=== PATIENT | female | born 2000 | race Caucasian/White ===

== ENCOUNTER 2023-01-16 08:31 | Emergency (ER) | payer OTHER ==
[~2023-01-16] VITALS: Ht 177 cm; Wt 63.0 kg
[2023-01-16 09:26] LABS: ALBUMIN 4.6 GM/DL (3.2-4.5); BASOPHILS % (AUTO) 0 % (0-10); EOSINOPHILS # (AUTO) 0.1 10^3/uL (0.0-0.3); EOSINOPHILS % (AUTO) 0 % (0-10); HEMATOCRIT 47 % (35-52); HEMOGLOBIN 15.5 g/dL (11.5-16.0); LYMPHOCYTES # (AUTO) 0.5 10^3/uL (1.0-4.0); LYMPHOCYTES % (AUTO) 4 % (12-44); MEAN CORPUSCULAR HEMOGLOBIN 30 pg (25-34); MEAN CORPUSCULAR HGB CONC 33 g/dL (32-36); MEAN CORPUSCULAR VOLUME 90 fL (80-99); MEAN PLATELET VOLUME 10.3 fL (9.0-12.2); MONOCYTES # (AUTO) 0.5 10^3/uL (0.0-1.0); MONOCYTES % (AUTO) 4 % (0-12); NEUTROPHILS # (AUTO) 11.4 10^3/uL (1.8-7.8); NEUTROPHILS % (AUTO) 91 % (42-75); PLATELET COUNT 186 10^3/uL (130-400); WHITE BLOOD COUNT 12.5 10^3/uL (4.3-11.0)
[2023-01-16 09:27] LABS: CHLORIDE 110 MMOL/L (98-107); POTASSIUM 4.2 MMOL/L (3.6-5.0); SODIUM 137 MMOL/L (135-145)
--- NOTE | 2023-01-16 09:27 | ED GI ---
General Chief Complaint: Abdominal/GI Problems Stated Complaint: VOMITING | DIARRHEA | NAUSEA Nursing Triage Note: PT AMB TO RM 10 STATES HAS HAD N/V/D SINCE APPROX 0200 THIS AM. 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 Hematochezia states she does have history of celiac disease denies any significant triggers she creates her own foods and takes them to work with her. At work last night she began having nausea and then proceeded to vomiting and diarrhea by 5 AM. No fever no significant distress she is feeling otherwise worn down from protracted volume loss. She states she felt like this a couple of years ago did not seek medical attention but at that time did not have diarrhea. She states she would not of come in however she is just feeling rundown and continues to have some nausea. Timing/Duration: 4-6 Hours Severity/Quality: Moderate Associated Symptoms: Nausea/Vomiting Allergies and Home Medications Allergies Coded Allergies: gluten (Verified Allergy, Unknown, 01/16/23) Patient Home Medication List Home Medication List Reviewed: Yes Ondansetron (Ondansetron Odt) 4 Mg Tab.rapdis, 4 MG SL Q6H PRN for NAUSEA/VOMITING Prescribed by: Summer Fields on 01/16/23 1003 Review of Systems Review of Systems Constitutional: no symptoms reported EENTM: No Symptoms Reported Respiratory: No Symptoms Reported Cardiovascular: No Symptoms Reported Gastrointestinal: See HPI, Abdominal Pain, Diarrhea, Nausea, Vomiting Genitourinary: No Symptoms Reported Musculoskeletal: no symptoms reported Skin: no symptoms reported Psychiatric/Neurological: No Symptoms Reported Endocrine: No Symptoms Reported Hematologic/Lymphatic: No Symptoms Reported All Other Systems Reviewed Negative Unless Noted: Yes Past [id number]-[id number]-Hbeetg Hx Patient Social History Tobacco Use?: No Substance use?: No Alcohol Use?: No Immunizations Up To Date Influenza Vaccine Up-to-Date: Yes; Up-to-Date Past Medical History Surgery/Hospitalization HX: CILIAC DISEASE. EAR SURG X 2 Last Menstrual Period: Jan 16, 2023 Physical Exam Vital Signs Vital Signs - First Documented 01/16/23 08:55 Temp 36.8 Pulse 96 Resp 18 B/P (MAP) 106/64 (78) Pulse Ox 100 Capillary Refill : Less Than 3 Seconds Height/Weight/BMI Height: '" Weight: lbs. oz. kg; 20.00 BMI Method: General Appearance: WD/WN, no apparent distress HEENT: PERRL/EOMI, normal ENT inspection Neck: non-tender, full range of motion Respiratory: chest non-tender, lungs clear, normal breath sounds, no respiratory distress, no accessory muscle use Cardiovascular: regular rate, rhythm, no murmur Gastrointestinal: non tender, soft Extremities: normal range of motion, non-tender Back: no CVA tenderness Neurologic/Psychiatric: pulley man II-XII nml as tested, no motor/sensory deficits, alert, normal mood/affect, oriented x 3 Skin: normal color, warm/dry Progress/Results/Core Measures Results/Orders Lab Results Laboratory Tests Test 01/16/23 09:10 Range/Units White Blood Count 12.5 H 4.3-11.0 10^3/uL Red Blood Count 5.18 H 3.80-5.11 10^6/uL Hemoglobin 15.5 11.5-16.0 g/dL Hematocrit 47 35-52 % Mean Corpuscular Volume 90 80-99 fL Mean Corpuscular Hemoglobin 30 25-34 pg Mean Corpuscular Hemoglobin Concent 33 32-36 g/dL Red Cell Distribution Width 12.5 10.0-14.5 % Platelet Count 186 130-400 10^3/uL Mean Platelet Volume 10.3 9.0-12.2 fL Immature Granulocyte % (Auto) 0 % Neutrophils (%) (Auto) 91 H 42-75 % Lymphocytes (%) (Auto) 4 L 12-44 % Monocytes (%) (Auto) 4 0-12 % Eosinophils (%) (Auto) 0 0-10 % Basophils (%) (Auto) 0 0-10 % Neutrophils # (Auto) 11.4 H 1.8-7.8 10^3/uL Lymphocytes # (Auto) 0.5 L 1.0-4.0 10^3/uL Monocytes # (Auto) 0.5 0.0-1.0 10^3/uL Eosinophils # (Auto) 0.1 0.0-0.3 10^3/uL Basophils # (Auto) 0.0 0.0-0.1 10^3/uL Immature Granulocyte # (Auto) 0.0 0.0-0.1 10^3/uL Neutrophils % (Manual) 89 % Lymphocytes % (Manual) 4 % Monocytes % (Manual) 2 % Eosinophils % (Manual) 1 % Basophils % (Manual) 0 % Band Neutrophils 0 % Reactive Lymphocytes 4 % Blood Morphology Comment NORMAL Sodium Level 137 135-145 MMOL/L Potassium Level 4.2 3.6-5.0 MMOL/L Chloride Level 110 H 98-107 MMOL/L Carbon Dioxide Level 18 L 21-32 MMOL/L Anion Gap 9 5-14 MMOL/L Blood Urea Nitrogen 16 7-18 MG/DL Creatinine 0.79 0.60-1.30 MG/DL Estimat Glomerular Filtration Rate 108 BUN/Creatinine Ratio 20 Glucose Level 98 70-105 MG/DL Calcium Level 8.8 8.5-10.1 MG/DL Corrected Calcium 8.5-10.1 MG/DL Magnesium Level 2.0 1.6-2.4 MG/DL Total Bilirubin 0.4 0.1-1.0 MG/DL Aspartate Amino Transf (AST/SGOT) 22 5-34 U/L Alanine Aminotransferase (ALT/SGPT) 27 0-55 U/L Alkaline Phosphatase 68 40-136 U/L Total Protein 7.6 6.4-8.2 GM/DL Albumin 4.6 H 3.2-4.5 GM/DL Lipase 24 8-78 U/L My Orders Orders - SUMMER FIELDS DO Cbc And Automated Diff (01/16/23 08:52) Comprehensive Metabolic Panel (01/16/23 08:52) Hcg,Qualitative Urine (01/16/23 08:52) Lipase (01/16/23 08:52) Magnesium (01/16/23 08:52) Ua Culture If Indicated (01/16/23 08:52) Ed Iv/Invasive Line Start (01/16/23 08:52) Manual Differential (01/16/23 09:10) Ondansetron Injection (Ondansetron Inj (01/16/23 09:35) Ns Iv 1000 Ml (Ns Iv 1000 Ml) (01/16/23 09:35) Medications Given in ED Current Medications Medications Dose Ordered Sig/Glenny Route Start Time Stop Time Status Last Admin Dose Admin Ondansetron HCl 4 mg STK-MED ONCE .ROUTE 01/16/23 09:35 01/16/23 09:37 DC 01/16/23 09:39 4 MG Sodium Chloride 1,000 ml @ ud STK-MED ONCE .ROUTE 01/16/23 09:35 01/16/23 09:37 DC 01/16/23 09:40 1,000 MLS/HR Vital Signs/I&O 01/16/23 01/16/23 08:55 10:41 Temp 36.8 Pulse 96 84 Resp 18 18 B/P (MAP) 106/64 (78) 110/64 Pulse Ox 100 100 Blood Pressure Mean: 78 Progress Progress Note : Progress Note 22-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 States this started at 2 AM where she did not feel well when they were woken up to go to call she states she felt nauseated with abdominal cramping. She states he got another call at 5 AM and at that point she did begin vomiting when he got to the station she could not leave the toilet secondary to nausea vomiting and diarrhea. Denies melena hematochezia or hematemesis no fever states she cooks her own food as she does have celiac disease and asthma and does not think that she had any bad food. No fever no abdominal pain other than intermittent cramping denies chance of no abdominal bloating. Will provide 1 L of normal saline as well as Zofran and obtain basic labs to ensure no significant dehydration etc. Patient is in no significant distress she is concern for dehydration however. Exam does not reveal a surgical abdomen 1001 patient feeling better no episodes of diarrhea or vomiting while in the emergency department. Will provide Zofran advised [id number] Imodium if needed for significant diarrhea, she is gluten intolerant and therefore understands the importance of appropriate diet. Return as needed otherwise follow-up with primary care. Departure Impression Primary Impression: Gastroenteritis Disposition: HOME, SELF-CARE Condition: Improved Departure-Patient Inst. Referrals: ZAFAR FUNG MD (PCP/Family) Primary Care Physician Patient Instructions: Viral Gastroenteritis, Adult (DC) Add. Discharge Instructions: Take medications as directed. [id number] Imodium as needed for significant diarrhea, soft bland diet as you recover from this episode of gastroenteritis. Follow-up with primary care, if symptoms worsen or are persistent, return as needed for problems. Try to maintain adequate hydration. All discharge instructions reviewed with patient and/or family. Voiced understanding. Scripts Ondansetron (Ondansetron Odt) 4 Mg Tab.rapdis 4 MG SL Q6H PRN for NAUSEA/VOMITING for 7 Days, #28 TAB Prov: SUMMER FIELDS DO 01/16/23 SUMMER FIELDS DO Jan 16, 2023 09:27
[2023-01-16 09:28] LABS: CALCIUM 8.8 MG/DL (8.5-10.1)
[2023-01-16 09:29] LABS: GLUCOSE 98 MG/DL (70-105); TOTAL PROTEIN 7.6 GM/DL (6.4-8.2)
[2023-01-16 09:30] LABS: CARBON DIOXIDE 18 MMOL/L (21-32)
[2023-01-16 09:31] LABS: BILIRUBIN,TOTAL 0.4 MG/DL (0.1-1.0)
[2023-01-16 09:32] LABS: ALKALINE PHOSPHATASE 68 U/L (40-136)
[2023-01-16 09:33] LABS: CREATININE SERUM 0.79 MG/DL (0.60-1.30); GFR ESTIMATED 108
[2023-01-16 09:34] LABS: BUN/CREATININE RATIO 20
[2023-01-16] MEDS ORDERED: NS IV 1000 ML 1,000 ML ONE (09:35)
[2023-01-16] MEDS ORDERED: ONDANSETRON INJECTION 4 MG/2 ML (SDV) ONE (09:35)
[2023-01-16 09:36] LABS: ALANINE AMINOTRANSFERASE 27 U/L (0-55); LIPASE 24 U/L (8-78)
[2023-01-16 09:55] LABS: BAND NEUTROPHILS 0 %; BASOPHILS % (MANUAL) 0 %; EOSINOPHILS % (MANUAL) 1 %; LYMPHOCYTES % (MANUAL) 4 %; MONOCYTES % (MANUAL) 2 %; NEUTROPHILS % (MANUAL) 89 %; RBC MORPH NORMAL; REACTIVE LYMPHOCYTES 4 %
[2023-01-16] MEDS ORDERED: ONDA4TAB11 SL ×2 (10:03→10:49)
[2023-01-16 10:41] VITALS: BP 110/64
== END 2023-01-16 11:13 | disposition home or self-care (01) ==
LOC: ER 08:33
DX: K52.9 Noninfective gastroenteritis and colitis, unspecified (principal)
CPT/HCPCS: 36415; 80053; 83690; 83735; 85007; 85027; 96361; 96374